=== PATIENT | female | born 2000 | race Two or more races ===

== ENCOUNTER 2021-12-03 12:57 | Emergency (ER) | payer OTHER ==
[~2021-12-03] VITALS: Ht 162.6 cm; Wt 81.6 kg
[2021-12-03 13:30] VITALS: BP 128/80
== END 2021-12-03 16:41 | disposition home or self-care (01) ==
LOC: ER 13:00
DX: R41.82 Altered mental status, unspecified (principal); F20.9 Schizophrenia, unspecified; F17.210 Nicotine dependence, cigarettes, uncomplicated; F15.10 Other stimulant abuse, uncomplicated